=== PATIENT | male | born 1955 | race Caucasian/White ===

== ENCOUNTER 2021-11-25 10:57 | Observation (INO) | payer MEDICARE ==
[~2021-11-25] VITALS: Ht 180.3 cm; Wt 135.2 kg
[2021-11-25 11:32] LABS: BASOPHILS % 0.2 % (0.0-1.0); EOSINOPHILS # (AUTO) 0.2 (0.0-0.4); EOSINOPHILS % 2.1 % (0.0-6.0); HEMATOCRIT 38.9 % (38.2-49.6); HEMOGLOBIN 12.4 g/dL (14.0-18.0); LYMPHOCYTES # (AUTO) 1.6 (1.0-3.2); MEAN CORPUSCULAR HEMOGLOBIN 28.9 pg (28-32); MEAN CORPUSCULAR HGB CONC 31.9 g/dL (31-35); MEAN CORPUSCULAR VOLUME 90.7 fL (81-99); MONOCYTES # (AUTO) 0.9 (0.2-0.8); MONOCYTES % 10.8 % (4.4-11.3); NEUTROPHILS # (AUTO) 5.7 (2.1-6.9); NEUTROPHILS % 67.5 % (38.7-80.0); PLATELET COUNT 217 x10e3/uL (140-360); RED BLOOD COUNT 4.29 x10e6/uL (4.3-5.7); RED CELL DISTRIBUTION WIDTH 12.6 % (11.7-14.4)
[2021-11-25 11:46] LABS: INR 1.05; PROTHROMBIN TIME 14.7 seconds (11.9-14.5)
[2021-11-25 11:47] LABS: PARTIAL THROMBOPLASTIN TIME 31.3 seconds (23.8-35.5)
[2021-11-25 11:53] LABS: ALBUMIN 3.4 g/dL (3.5-5.0); ALBUMIN/GLOBULIN RATIO 1.4 (0.8-2.0); ANION GAP 10.4 mmol/L (8-16); CALCIUM 8.2 mg/dL (8.4-10.2); CREATININE, SERUM 1.05 mg/dL (0.72-1.25); POTASSIUM 4.4 mmol/L (3.5-5.1)
[2021-11-25] MEDS ORDERED: ASPIRIN 325 MG TAB PO ONE (12:15)
[2021-11-25 12:22] LABS: CREATINE KINASE 107 IU/L (30-200)
[2021-11-25] MEDS ORDERED: Morphine 2mg Syringe 2 MG/ML SYR IV PRN (14:45)
[2021-11-25] MEDS ORDERED: ASPIRIN 81 MG CHEW TAB PO ONE (14:45)
[2021-11-25] MEDS ORDERED: ONDANSETRON HCL INJ 2MG/ML 2ML 2 MG/ML VIAL IV PRN (14:45)
[2021-11-25] MEDS ORDERED: ATORVASTATIN CA20 MG PO (17:24)
[2021-11-25] MEDS ORDERED: COREG12.5 MG PO (17:24)
[2021-11-25] MEDS ORDERED: METOPROLOL TART50 MG PO (17:24)
[2021-11-25] MEDS ORDERED: LISINOPRIL10 MG PO (17:24)
[2021-11-25] MEDS ORDERED: METFORMIN HCL500 MG PO (17:24)
[2021-11-25] MEDS ORDERED: FLECAINIDE ACE100 MG PO (17:24)
[2021-11-25] MEDS ORDERED: MONTELUKAST SOD10 MG PO (17:24)
[2021-11-25] MEDS ORDERED: ELIQUIS5 MG PO (17:24)
[2021-11-25] MEDS ORDERED: FUROSEMIDE INJ 10 MG/ML 4 ML VIAL IV ONE (17:30)
[2021-11-25] MEDS ORDERED: CLONIDINE HCL 0.1 MG TAB PO PRN (17:45)
[2021-11-25] MEDS ORDERED: DEXTROSE 50% SYRINGE 50 ML IV PRN (17:45)
[2021-11-25 17:49] VITALS: BP 157/86
[2021-11-25 17:53] VITALS: BP 157/86
[2021-11-25] MEDS: CARVEDILOL 12.5 MG TAB PO SCH (18:33)
[2021-11-25 18:35] VITALS: BP 157/86
[2021-11-25] MEDS: APIXABAN 5 MG TABLET PO SCH (19:17)
[2021-11-25] MEDS ORDERED: VITAMIN C WIT1000 MG PO (19:34)
[2021-11-25] MEDS ORDERED: ZYRTEC10 MG PO (19:34)
[2021-11-25] MEDS ORDERED: OZEMPIC0.25 MG/0. SC (19:34)
[2021-11-25 19:55] LABS: CREATINE KINASE 106 IU/L (30-200)
[2021-11-25 20:00] VITALS: BP 156/90
[2021-11-25 20:04] VITALS: BP 157/86
[2021-11-25] MEDS ORDERED: ATORVASTATIN 20 MG TAB PO SCH (21:00)
[2021-11-25] MEDS: FLECAINIDE ACETATE 100 MG TAB PO SCH (21:11)
[2021-11-25 23:43] VITALS: BP 116/79
[2021-11-26 02:35] LABS: CREATINE KINASE 97 IU/L (30-200)
[2021-11-26 04:00] VITALS: BP 140/91
[2021-11-26 06:22] LABS: BASOPHILS % 0.2 % (0.0-1.0); EOSINOPHILS # (AUTO) 0.2 (0.0-0.4); EOSINOPHILS % 2.2 % (0.0-6.0); HEMATOCRIT 39.5 % (38.2-49.6); HEMOGLOBIN 12.5 g/dL (14.0-18.0); LYMPHOCYTES # (AUTO) 1.9 (1.0-3.2); LYMPHOCYTES % 21.9 % (18.0-39.1); MEAN CORPUSCULAR HEMOGLOBIN 28.8 pg (28-32); MEAN CORPUSCULAR HGB CONC 31.6 g/dL (31-35); NEUTROPHILS # (AUTO) 5.5 (2.1-6.9); NEUTROPHILS % 64.2 % (38.7-80.0); PLATELET COUNT 189 x10e3/uL (140-360); RED BLOOD COUNT 4.34 x10e6/uL (4.3-5.7); RED CELL DISTRIBUTION WIDTH 12.5 % (11.7-14.4)
[2021-11-26 06:27] LABS: ALBUMIN 3.5 g/dL (3.5-5.0); ALBUMIN/GLOBULIN RATIO 1.6 (0.8-2.0); ANION GAP 11.9 mmol/L (8-16); CALCIUM 8.5 mg/dL (8.4-10.2); CREATININE, SERUM 1.1 mg/dL (0.72-1.25); POTASSIUM 3.9 mmol/L (3.5-5.1)
[2021-11-26 07:22] LABS: CREATINE KINASE MB < 1.00 ng/mL (0-4.3)
[2021-11-26] MEDS ORDERED: INSULIN LISPRO 100 UNIT/1 ML 3ML VIAL SQ SCH (07:30)
[2021-11-26] MEDS ORDERED: METFORMIN HCL 500 MG TAB PO SCH (08:00)
[2021-11-26] MEDS ORDERED: MONTELUKAST SODIUM 10 MG TAB PO SCH (09:00)
[2021-11-26] MEDS ORDERED: METOPROLOL TARTRATE 50 MG TAB PO SCH (09:00)
[2021-11-26] MEDS ORDERED: LISINOPRIL 20 MG TAB PO SCH (09:00)
[2021-11-26 09:18] VITALS: BP 140/91
[2021-11-26] MEDS: APIXABAN 5 MG TABLET PO SCH (09:21)
[2021-11-26] MEDS: FLECAINIDE ACETATE 100 MG TAB PO SCH (09:22)
[2021-11-26] MEDS: CARVEDILOL 12.5 MG TAB PO SCH (09:24)
[2021-11-26] MEDS ORDERED: ESIDRIX25 MG PO (11:22)
[2021-11-26 14:03] LABS: CHOL/HDL RATIO 2.4 (3.9-4.7)
[2021-11-26 14:16] LABS: CREATINE KINASE 99 IU/L (30-200)
[2021-11-26 14:27] LABS: FREE THYROXINE INDEX 2.2135 (1.4-3.8); THYROID STIMULATING HORMONE 1.32 uIU/mL (0.350-4.940)
[2021-11-27] MEDS ORDERED: HYDROCHLOROTHIAZIDE 25 MG TAB PO SCH (09:00)
== END 2021-11-26 12:51 | disposition home or self-care (01) ==
LOC: ER 11:20 → ERHOLD 14:42 → MED/SURG3 17:34
PROVIDERS: ADMIT Internal Medicine; ATTEND Internal Medicine
DX: I11.0 Hypertensive heart disease with heart failure (principal); I50.33 Acute on chronic diastolic (congestive) heart failure; E11.9 Type 2 diabetes mellitus without complications; I48.0 Paroxysmal atrial fibrillation; E78.00 Pure hypercholesterolemia, unspecified; Z68.41 Body mass index [BMI] 40.0-44.9, adult; I16.0 Hypertensive urgency; E78.5 Hyperlipidemia, unspecified; E66.01 Morbid (severe) obesity due to excess calories; Z79.01 Long term (current) use of anticoagulants; Z90.49 Acquired absence of other specified parts of digestive tract; Z87.891 Personal history of nicotine dependence; Z88.0 Allergy status to penicillin; Z20.822 Contact with and (suspected) exposure to COVID-19; Z79.84 Long term (current) use of oral hypoglycemic drugs
CPT/HCPCS: 36415; 71045; 80053 ×2; 80061; 82550 ×2; 82553 ×2; 82948; 83880; 84436; 84443; 84479; 84484 ×2; 85025 ×2; 85610; 85730; 93005; 93306; 94760; 94799; 99284; G0378 ×2; J1940; U0002